=== PATIENT | male | born 1960 | race Caucasian/White ===

== ENCOUNTER 2024-09-29 06:17 | Day surgery (SDC) | payer OTHER, SELFPAY | END 2024-09-29 12:08 | disposition home or self-care (01) | LOC: GI 06:17 | PROVIDERS: ATTENDING PHYSICIAN Internal Medicine Gastroenterology | DX: Z12.11 Encounter for screening for malignant neoplasm of colon (principal); D12.2 Benign neoplasm of ascending colon; K57.30 Diverticulosis of large intestine without perforation or abscess without bleeding; D12.8 Benign neoplasm of rectum; R85.613 High grade squamous intraepithelial lesion on cytologic smear of anus (HGSIL); K64.8 Other hemorrhoids | CPT/HCPCS: 45385; 45380; 88305; 88341; 88342 ==